=== PATIENT | female | born 1970 | race Caucasian/White ===

== ENCOUNTER 2016-06-17 06:51 | Day surgery (SDC) | payer OTHER ==
[2016-06-17] VITALS (8 sets, daily range): BP systolic 106–131; BP diastolic 58–78; PULSE 61–78; RESP 12–16; O2SAT 100
[~2016-06-17] VITALS: Ht 177.8 cm; Wt 64.1 kg
[~2016-06-17 06:51] MED LIST: CeFAZolin Inj 2 GM in IV Premix 1 EACH IV SCH; ESCI5TAB PO; MIRENA IUD VAGINAL
[2016-06-17] MEDS ORDERED: Propofol 10,000 mCg/mL 20 mL Inj ONE (06:52)
[2016-06-17] MEDS ORDERED: Dexamethasone 4 mg/mL Inj ONE (06:52)
[2016-06-17] MEDS ORDERED: Ondansetron 2 mg/mL 2 mL Inj ONE (06:52)
[2016-06-17] MEDS ORDERED: fentaNYL-PF 50 mCg/mL 2 mL Inj ONE (06:52)
[2016-06-17] MEDS: Lactated Ringer's 1,000 ML IV SCH ×2 (07:16→08:48)
[2016-06-17] MEDS ORDERED: Lactated Ringer's 500 ML IV PRN (08:43)
[2016-06-17] MEDS ORDERED: Lactated Ringer's 1,000 ML IV SCH (08:43)
--- NOTE | 2016-06-17 08:43 | PCM.HPANE ---
Patient Data Date of Service: June 17, 2016 (0842) Surgeon Admitting Provider: Attending Provider:Richar Chua MD Primary Care Physician:Jossie Other Provider:Natalie Metzger Anesthesia Reason for Visit Left Knee Meniscal Tear Ht/WT & BMI Height (Feet): 5 Height (Inches): 10.00 Weight (Kilograms): 64.140 Body Mass Index 20.00 Allergies Coded Allergies: No Known Allergies (Unverified , 06/16/16) Past Anesthesia History Anesthesia History: Denies:: Anesthesia Reactions, Malignant Hyperthermia Diabetes History Hx Diabetes?: No MRSA MRSA: No Medications Hypertension Medication: No Home Meds Incl Beta Sixto: No Reported Medications [Mirena Iud] No Conflict Check Vaginal 20MCG/24H 06/11/16 Escitalopram Oxalate (Lexapro)5 Mg Tablet5 Mg PO DAILY 30 Days Ref 0 06/11/16 History History of ENT Problems?: No HEENT History: Denies:: Abnormal Airway Denture Type: None Teeth Condition: Within Normal Limits Hx of Heart Problems?: No Cardiovascular History: Denies:: Heart Murmur Hypertension Hx of Respiratory Problem?: No Respiratory History: Denies:: Use of C-PAP Machine Hx Neurologic Problems?: No Hx of GI Problems?: No Hx of Problems?: Yes Genitourinary History: Positive for:: Urinary Tract Infection (HX OF) Female Hx: Denies:: Currently Skin History: Denies:: History Skin Disorders? Pressure Ulcers Hx Musculoskeletal Problems?: Yes Musculoskeletal History: Positive for:: Musculoskeletal Trauma (S/P RT ACL RECONSTRUCTION LT KNEE MENISCAL TEAR=CURRENT PROBLEM) Hx of Psycho/Social Problems?: Yes Psycho Social History: Positive for:: Hx Depression Hx Surgeries?: Yes (RT ACL RECONSTRUCTION) Hx Any Other Health Problems?: Yes Other History: Positive for:: Hospitalization ([facility]) Denies:: Cancer Endocrine Disease Thyroid Disease History Blood Transfusions: Denies:: Blood Transfusions Hx Diabetes: No Have You Smoked inLast 12 mo: No Stop/Bang S-Snoring: Do You Snore Loudly: No T-Tired: feel tired, fatigued: No O-Obsered: Observed not breath: No P-Blood Pressure: treated: No B- Body Mass Index > 35 kg/m2: No A- Age over 50: No N- Neck Large Circumference: No G- Gender Male: No CAITLYN Total Score: 0 CAITLYN Risk Assessment: Low Risk, <3 Yes Risk Assessment Category Category 1A: Patient has history of documented sleep apnea, and HAS NOT received any narcotic, sedative or anesthesia administration during this stay. Category 1B: Patient has history of documented sleep apnea, and HAS received any narcotic , sedative or anesthesia administration during this stay Category 2: Patient has SUSPECTED Obstructive Sleep Apnea, and HAS received any narcotic , sedative or anesthesia administration during this stay. Category 3: Patient has SUSPECTED Obstructive Sleep Apnea and HAS NOT received narcotic, sedative or anesthesia administration during this stay. Category 4: Outpatient in Procedural Areas with known sleep apnea or who screen positive for High Risk via the STOP/BANG questionnaire. Exam Exam Vital Signs Vital Signs Date Time Temp Pulse Resp B/P Pulse Ox O2 Delivery O2 Flow Rate FiO2 06/17/16 07:08 36.8 62 14 117/76 100 Room Air General Appearance: Alert, Oriented X3, Cooperative HEENT/AIRWAY: MP 1 Lungs: Clear to Auscultation Heart: Exam Unremarkable Meds/Labs/Diagnostics Admission Meds Current Medications Lactated Ringer's (Lr) 1,000 ml @ 120 mls/hr Q8H20M IV Last administered on t 07:16; Start 06/17/16 at 05:00; Stop 06/17/16 at 13:19 Plan Impression Patient chart reviewed, patient interviewed and anesthestic plan with risks, benefits, and alternatives discussed, and informed consent obtained. NPO per Anesth. Guidelines: Yes ASA Physical Status: ASA1 Normal Healthy Anesthetic Plan: GA Bene/Risks/Altern/Consents: Yes HP Complete Prior to Induction: Yes John Irizarry MD June 17, 2016 08:43
[2016-06-17] MEDS ORDERED: EPHEDrine Sulfate 50 mg/mL Inj IVPUSH PRN (08:45)
[2016-06-17] MEDS ORDERED: fentaNYL-PF 50 mCg/mL 2 mL Inj IVPUSH PRN (08:45)
[2016-06-17] MEDS ORDERED: MetoCLOpramide 5 mg/mL 2 mL Inj IVPUSH PRN (08:45)
[2016-06-17] MEDS ORDERED: Phenylephrine 10,000 mCg/mL Inj IVPUSH PRN (08:45)
[2016-06-17] MEDS ORDERED: Ondansetron 2 mg/mL 2 mL Inj IVPUSH PRN (08:45)
[2016-06-17] MEDS ORDERED: HYDROmorphone 1 mg/mL Inj IVPUSH PRN (08:45)
[2016-06-17] MEDS ORDERED: Dexamethasone 4 mg/mL Inj IVPUSH PRN (08:45)
[2016-06-17] MEDS ORDERED: Ropivacaine-PF 0.5% 30 mL Inj INJ ONE (09:12)
--- NOTE | 2016-06-17 09:40 | PCM.ANEP1 ---
Post Anesthesia Phase 1 PACU Phase 1 Assessment Date of Service: June 17, 2016 (0842) Vital Signs 36.2, 108/65, 63, 12, 97% Vital Signs Date Time Temp Pulse Resp B/P Pulse Ox O2 Delivery O2 Flow Rate FiO2 06/17/16 07:08 36.8 62 14 117/76 100 Room Air Anesthetic Administered: GA Level of Alertness: Sleepy, easy to arouse BERRIOS's with Equal Strength: Yes Pain: No Nausea or Vomiting: No Cardiovascular Function and Hy: Yes Oxygen Delivery: Simple Mask Lungs: Clear to Auscultation Dermatome Level: Full Sensation Summary uneventful GA Complications: Yes Follow up Care: No John Irizarry MD June 17, 2016 09:40
[2016-06-17] MEDS ORDERED: HYDROcodone-APAP 5-325 mg Tablet PO PRN (09:55)
[2016-06-17] MEDS ORDERED: Ketorolac 15 mg/mL Inj IVPUSH ONE (09:55)
--- NOTE | 2016-06-17 09:59 | PCM.ORTHOP ---
Orthopedic Operative Report Date of Service: June 17, 2016 (0842) Pre Operative Diagnosis Left knee medial meniscus tear Post Operative Diagnosis Same Procedure Left knee arthroscopy, medial meniscus repair, partial medial meniscectomy, partial synovectomy, chondroplasty Surgeon Surgeon: Richar Chua MD Assistants: None Indication for Procedure Left knee meniscus tear Findings Per dictation Details of Procedure INDICATIONS: Zara Lucero is a 45 year old female who has had a history of left knee pain. The patient has failed conservative management. 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 MRI was obtained which reveals medial meniscus tear. The patient has had persistent symptoms and is now brought to the operating room for arthroscopy. The risks, benefits, and alternatives of surgery were discussed with the patient. The risks included but were not limited to infection, bleeding, damage to vessels and nerves, loss of motion, continued pain, re-tear of the meniscus, deep venous thrombosis, and complications due to anesthesia including nerve injury, myocardial infarction, stroke, , etc. The patient stated understanding of the nature of the surgical procedure and gave written and verbal consent to proceed. PROCEDURE: The patient was brought to the operating room and placed supine on the operating room table. After the administration of general anesthesia the patient was placed in the supine position. Examination of the knee revealed no evident instability with a trace effusion. All prominences were padded with appropriately and neurovascular structures protected. The left knee was confirmed to be the appropriate site following surgical time out. The left lower extremity was examined under anesthesia. Range of motion was 0-135 degrees. There was no varus or valgus or anterior or posterior instability. The left lower extremity was then prepped and draped in the usual fashion. Sterile prep and drape was then undertaken of the knee. The knee joint was injected with 20 ccs of 1% Lidocaine, along with 3 ccs of 1 % lidocaine in the medial and lateral portal sites respectively. A standard anterolateral parapatellar stab wound was created. The knee joint was entered with a blunt- tipped obturator, followed by the 30-degree video arthroscope. An anteromedial portal was established under arthroscopic control. A routine arthroscopic survey was performed. 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 The medial joint space was then entered. The articular surfaces showed grade 0/ 1 chondromalacia. A large displaced bucket-handle medial meniscal tear was noted with a small radial tear. The shaver and the cutting instruments were inserted, and a debridement of the radial tear of the meniscus back to healthy tissue was then undertaken. The meniscus was debrided at the tear which was at the red red zone. Using a [employer] FasT-Fix suture anchors circumferential anchors were placed from posterior to anterior with good fixation. The probe was used to assess the stability with good fixation. The ACL and PCL were noted to be intact. The lateral joint space was then entered. The articular surfaces were intact with grade 0/1 chondromalacia. There was degenerative fraying lateral aspect of the lateral meniscus. However, this was not unstable and a meniscectomy was not performed. Moderate synovitis was noted anteriorly in the medial and lateral compartment and debrided with a shaver. The knee was irrigated with an additional 2 liters of lactated Ringer's solution. Excess fluid was drained. The portals were closed with 3-0 nylon as well as xeroform. The knee was injected with 20 mL of 0.5% ropivacaine. A dry sterile dressing was applied, followed by an KAMILAH hose, soft roll, and MAO bandage. The patient was awakened in the operating room and transported to the recovery room in satisfactory condition. The patient appeared to tolerate the procedure well. At the completion of surgery the patient had soft compartments , palpable pulses, and brisk capillary refill. There were no complications noted. Please keep dressing clean dry and intact. Do not remove dressing until follow- up in clinic. If the dressing become soaked, you may remove the outer gauze and placed Band-Aids on the wounds. Do Not weight-bear on the affected extremity. You may use crutches or a walker fro assistance. Please leave brace on at all times. You may do gentle range of motion exercises 3 times daily. You will follow up with me in clinic in 10-14 days for suture removal, and placement of new Steri-Strips. You will follow-up with me at 6 weeks and at that time continue ROM exercises and start WBAT. Please keep the affected extremity elevated when possible. Please take aspirin as prescribed. You may use ice and/or heat as needed for comfort. (preferably ice during the first 48- 72 hours) Please feel free to call with any further questions, comments, and/or concerns. Grafts, Implants: Implants-See Implant Record Complications There were no periprocedural complications identified. Condition Stable Anesthetic Administered: GA Drains: RACHAEL Drain #1 Catheters: None Output, Estimated Blood Loss: 5 Blood Admin during surgery: No Surgical Cast or Splint: Other Surgical Specimen Removed: No Specimen sent to Pathology: No copies to: Richar Chua MD, Christopher L MD June 17, 2016 09:59
== END 2016-06-17 23:59 | disposition home or self-care (01) ==
LOC: SAS 06:51
PROVIDERS: ATTEND Orthopaedic Surgery
DX: S83.212A Bucket-handle tear of medial meniscus, current injury, left knee, initial encounter (principal); M22.42 Chondromalacia patellae, left knee; X50.0XXA Overexertion from strenuous movement or load, initial encounter; Y93.67 Activity, basketball; Y92.9 Unspecified place or not applicable; M65.862 Other synovitis and tenosynovitis, left lower leg
CPT/HCPCS: 29881; C1713; J0690; J1100; J1885; J2250; J2405; J2795; J3010; J7120